=== PATIENT | male | born 1980 | race Caucasian/White ===

== ENCOUNTER 2017-10-09 01:43 | Emergency (ER) | payer OTHER ==
[2017-10-09 01:47] VITALS: BP 143/96
[2017-10-09] MEDS ORDERED: PREDNISONE 20 MG TABLET PO ONE (02:41)
--- NOTE | 2017-10-09 02:41 | ER Document Report ---
HPI - HPI Patient complains to provider of: skin rash Pain Level: 1 Context: Patient is a 36-year-old male comes emergency department for 2 different rashes. He has an itchy rash over his arms, chest, back, and also over the proximal legs, this is been present for 1 week. He also has a rash that he always gets around his boots which becomes itchy, turns into fluid vesicles, and then dries out and currently it is very dry. He denies any fevers or chills , he denies any throat or tongue swelling, denies facial swelling, denies difficulty breathing. Only past medical history is back surgery, takes no daily medications. Past Medical History - General Information source: Patient - Social History Smoking Status: Never Smoker Frequency of alcohol use: None Drug Abuse: None Lives with: Family Family History: Reviewed & Not Pertinent - Medical History Medical History: Negative Past Surgical History: Reports: Hx Orthopedic Surgery - Immunizations Hx Diphtheria, Pertussis, Tetanus Vaccination: Yes Vertical Provider Document - CONSTITUTIONAL General Appearance: WD/WN, No Apparent Distress - INFECTION CONTROL TRAVEL OUTSIDE OF THE [place] IN LAST 30 DAYS: No - HEENT HEENT: Atraumatic, Normal ENT Exam, Normocephalic - RESPIRATORY Respiratory: Breath Sounds Normal, No Respiratory Distress O2 Sat by Pulse Oximetry: 96 - CARDIOVASCULAR Cardiovascular: Regular Rate, Regular Rhythm - GI/ABDOMEN Gastrointestinal: Abdomen Soft, Abdomen Non-Tender - MUSCULOSKELETAL/EXTREMETIES Musculoskeletal/Extremeties: MAEW, FROM, Non-Tender - DERM Integumentary: Rash - Urticaria noted over the legs, arms, back, abdomen. Lower extremity with boot lines showing dried skin below the boot line suggestive of eczema. No indurations, fluctuance, significant arrhythmia, purulent component. Scattered areas of excoriation Course - Re-evaluation Re-evalutation: Contact dermatitis/eczema noted over the feet/legs distally. Urticaria noted otherwise. Normal ENT examination, normal airway. No evidence of anaphylaxis. Treating accordingly. Discussed monitoring, follow-up, return precautions. Patient states understanding and agreement. - Vital Signs Vital signs: Temp Pulse Resp BP Pulse Ox 98 F 107 H 16 143/96 H 96 10/09/17 01:45 10/09/17 01:45 10/09/17 01:45 10/09/17 01:45 10/09/17 01:45 Discharge - Discharge Clinical Impression: Skin rash Condition: Stable Disposition: HOME, SELF-CARE Additional Instructions: Your rash shows a mixture of eczema and hives. The exact cause of the hives is not clear. Take the prednisone as prescribed, take antihistamines prescribed for 1 week. Apply moisturizing cream to the dry parts of your leg, this appears to be eczema , but can also respond to topical steroid before it gets dry. Follow-up with primary care. Return to the emergency department for any concerning or worsening symptoms including swelling of the face/throat, difficulty breathing, or any other concerning symptoms. Prescriptions: Cetirizine HCl [Zyrtec 10 mg Tablet] 1 tab PO DAILY #30 tablet Famotidine [Pepcid 20 mg Tablet] 20 mg PO DAILY #12 tablet Prednisone [Deltasone 10 mg Tablet] 10 mg PO ASDIR PRN #21 tablet PRN Reason:
[2017-10-09] MEDS ORDERED: CETIRIZINE 10 MG TABLET PO ONE (02:42)
[2017-10-09] MEDS ORDERED: FAMOTIDINE 20 MG TABLET PO ONE (02:42)
== END 2017-10-09 02:56 | disposition home or self-care (01) ==
LOC: ER 01:43
DX: R21 Rash and other nonspecific skin eruption (principal)
CPT/HCPCS: 99282; J7512

== ENCOUNTER 2018-03-21 06:26 | Emergency (ER) | payer OTHER ==
[2018-03-21 06:39] VITALS: BP 150/90
[2018-03-21 07:58] LABS: ABSOLUTE BASOPHILS # (AUTO) 0.1 10^3/uL (0.0-0.2); ABSOLUTE EOSINOPHILS # (AUTO) 0.3 10^3/uL (0.0-0.6); ABSOLUTE LYMPHOCYTES (AUTO) 2.3 10^3/uL (0.5-4.7); ABSOLUTE MONOCYTES (AUTO) 0.8 10^3/uL (0.1-1.4); ABSOLUTE NEUT (AUTO) 4.8 10^3/uL (1.7-8.2); BASOPHILS % (AUTO) 0.8 % (0-2); EOSINOPHILS % (AUTO) 3.8 % (0-6); HEMATOCRIT 45.9 % (37.9-51.0); HEMOGLOBIN 15.6 g/dL (13.5-17.0); LYMPHOCYTES % (AUTO) 27.5 % (13-45); MEAN CORPUSCULAR HEMOGLOBIN 31.5 pg (27.0-33.4); MEAN CORPUSCULAR VOLUME 93 fl (80-97); MONOCYTES % (AUTO) 9.1 % (3-13); PLATELET COUNT 176 10^3/uL (150-450); RED BLOOD COUNT 4.94 10^6/uL (4.35-5.55); RED CELL DISTRIBUTION WIDTH 13.3 % (11.5-14.0); SEGMENTED NEUTROPHILS % (AUTO) 58.8 % (42-78); TOTAL CELLS COUNTED % (AUTO) 100 %; WHITE BLOOD COUNT 8.2 10^3/uL (4.0-10.5)
[2018-03-21 08:08] LABS: ALANINE AMINOTRANSFERASE 63 U/L (21-72); ALKALINE PHOSPHATASE 70 U/L (38-126); ANION GAP 11 (5-19); ASPARTATE AMINO TRANSFERASE 38 U/L (17-59); BILIRUBIN,DIRECT 0.3 mg/dL (0.0-0.4); BILIRUBIN,TOTAL 0.3 mg/dL (0.2-1.3); BLOOD UREA NITROGEN 10 mg/dL (7-20); CALCIUM 9.1 mg/dL (8.4-10.2); CARBON DIOXIDE 29 mmol/L (22-30); CHLORIDE 106 mmol/L (98-107); GLUCOSE 56 mg/dL (75-110); POTASSIUM 4.3 mmol/L (3.6-5.0); TOTAL PROTEIN 6.7 g/dL (6.3-8.2)
--- NOTE | 2018-03-21 08:32 | ER Document Report ---
ED General - General Chief Complaint: Bloody Stools Stated Complaint: BLOOD IN STOOL/SKIN PROBLEM Time Seen by Provider: 03/21/18 07:06 Mode of Arrival: Ambulatory Information source: Patient Notes: Patient presents emergency department with complaints of blood noted in the stool 3 bowel movements and possibly eczema since last year. Denies fever vomiting diarrhea. Reports stools are formed soft. Reports possible hemorrhoids. Reports he has had eczema in the same area since he was a child that came and went but since August the eczema has been worse. He has tried aquaphor without relief of sx. she also reports that Benadryl is not helping the itching which occurs mostly at night at approximately 3:00 in the morning. Reports he has a dermatology appointment on April 01. TRAVEL OUTSIDE OF THE [place] IN LAST 30 DAYS: No - HPI Onset: Other Onset/Duration: Persistent Quality of pain: No pain, Other - itchy Severity: None Pain Level: Denies Associated symptoms: None Exacerbated by: Denies Relieved by: Denies Similar symptoms previously: Yes Recently seen / treated by doctor: No - Related Data Allergies/Adverse Reactions: No Known Allergies Allergy (Unverified 03/21/18 07:05) Past Medical History - General Information source: Patient - Social History Smoking Status: Current Every Day Smoker Cigarette use (# per day): Yes Chew tobacco use (# tins/day): No Frequency of alcohol use: Occasional Drug Abuse: Marijuana Occupation: [employer] Lives with: Friend Family History: Reviewed & Not Pertinent. denies: Malignancy Patient has suicidal ideation: No Patient has homicidal ideation: No - Medical History Medical History: Negative Renal/ Medical History: Denies: Hx Peritoneal Dialysis Past Surgical History: Reports: Hx Orthopedic Surgery - Immunizations Hx Diphtheria, Pertussis, Tetanus Vaccination: Yes Review of Systems - Review of Systems Notes: Review HPI for review of systems., All other systems negative Physical Exam - Vital signs Vitals: Temp Pulse Resp BP Pulse Ox 98 F 86 18 150/90 H 98 03/21/18 06:27 03/21/18 06:27 03/21/18 06:27 03/21/18 06:27 03/21/18 06:27 - Notes Notes: PHYSICAL EXAMINATION: GENERAL: Well-appearing and in no acute distress HEAD: Atraumatic, normocephalic. EYES: Pupils equal round and reactive to light, extraocular movements intact, sclera anicteric, conjunctiva are normal. ENT: nares patent, oropharynx clear without exudates. Moist mucous membranes. NECK: Normal range of motion, supple without lymphadenopathy LUNGS: CTAB and equal. No wheezes rales or rhonchi. HEART: Regular rate and rhythm without murmurs ABDOMEN: Soft, no tenderness. No guarding, no rebound EXTREMITIES: Normal range of motion, no pitting edema. No cyanosis. NEUROLOGICAL: Cranial nerves grossly intact. Normal sensory/motor exams. PSYCH: Normal mood, normal affect. SKIN: Warm, Dry, normal turgor, eczema noted to tops of both feet, bilateral ankles, no warmth, good pedal pulse - Rectal Tenderness: Yes Stool: Heme positive Hemorrhoids: None - Skin Skin Temperature: Warm Skin Moisture: Dry Skin Color: Normal Location of irregularity: Extremities - bilateral ankles, dorsal tops of feet bilaterally with eczema Course - Re-evaluation Re-evalutation: 03/21/18 labs unremarkable, patient instructed on labs & treatment for eczema. Importance of follow-up with dermatology and GI for rectal bleeding. Denies family history of cancer. Instructed on stool softener, possible fissure. He verbalized understanding to all instructions, looks good, nontoxic. - Vital Signs Vital signs: Temp Pulse Resp BP Pulse Ox 98 F 86 18 150/90 H 98 03/21/18 06:27 03/21/18 06:27 03/21/18 06:27 03/21/18 06:27 03/21/18 06:27 - Laboratory Result Diagrams: 03/21/18 07:39 03/21/18 07:39 Laboratory results interpreted by me: 03/21/18 07:39 Sodium 146.0 H Glucose 56 L Discharge - Discharge Clinical Impression: Blood in stool Eczema Qualifiers: Eczema type: unspecified Qualified Code(s): L30.9 - Dermatitis, unspecified Condition: Stable Disposition: HOME, SELF-CARE Instructions: Atopic Dermatitis (Eczema) ([facility]), Gastroenterology, Rectal Bleeding, Unclear Cause ([facility]) Additional Instructions: *You have been evaluated for rectal bleeding, eczema *Monitor stools, take over the counter stool softener as indicated *Follow up with a sign erector within one week- I have listed several GI providers you may follow up with, call for an appointment *Follow up with your cooling pipe inspector as scheduled May 15th. Use cetaphil lotion as indicated *Take benadryl as indicated for itching, do not itch, apply cool compresses to calm itch *Return to ED for worsening condition, changes, needs Monitor your blood pressure. Your blood pressure was elevated today. This may be because you were anxious, in pain or because you need medication. It is important to follow up with your primary care provider for full evaluation. Forms: Elevated Blood Pressure, Smoking Cessation Education, Return to Work Referrals: MELISSA ROUSSEAU MD [ACTIVE STAFF] - Follow up as needed EDELMIRA EAGLE MD [ACTIVE STAFF] - Follow up as needed JESUS GEORGE MD [ACTIVE STAFF] -
== END 2018-03-21 08:57 | disposition home or self-care (01) ==
LOC: ER 06:26
DX: K92.1 Melena (principal); L30.9 Dermatitis, unspecified; F17.210 Nicotine dependence, cigarettes, uncomplicated
CPT/HCPCS: 36415; 80053; 82272; 85025; 99283

== ENCOUNTER 2018-04-02 08:02 | Emergency (ER) | payer OTHER ==
[2018-04-02 08:25] VITALS: BP 150/92
--- NOTE | 2018-04-02 10:04 | ER Document Report ---
ED GI Bleed / Rectal Pain - General Chief Complaint: Rectal Pain Stated Complaint: POSSIBLE HEMORRHOIDS Time Seen by Provider: 04/02/18 09:12 Notes: 37-year-old male. Complaining of pain in the rectum. Had a colonoscopy performed on Saturday. Has been fine. Had a large bowel movement this morning and developed pain after bowel movement. No blood in the stool. Patient had a colonoscopy because he had been passing bright red blood per rectum. Followed by Dr. Phillips. Denies any abdominal pain. No shortness of breath. No fever. Pain is getting a little bit better since he has arrived here. Has been using some hemorrhoidal cream. Stool softeners. States the bowel movement was soft. TRAVEL OUTSIDE OF THE [place] IN LAST 30 DAYS: No - HPI Onset: Just prior to arrival - Related Data Allergies/Adverse Reactions: No Known Allergies Allergy (Verified 04/02/18 08:05) Past Medical History - General Information source: Patient - Social History Smoking Status: Unknown if Ever Smoked Cigarette use (# per day): No Frequency of alcohol use: None Drug Abuse: None Lives with: Family Family History: Reviewed & Not Pertinent. denies: Malignancy Renal/ Medical History: Denies: Hx Peritoneal Dialysis Past Surgical History: Reports: Hx Orthopedic Surgery - back 2007 - Immunizations Hx Diphtheria, Pertussis, Tetanus Vaccination: Yes Review of Systems - Review of Systems Constitutional: No symptoms reported EENT: No symptoms reported Cardiovascular: No symptoms reported Respiratory: No symptoms reported Gastrointestinal: See HPI, Other - Rectal pain, rectal bleeding Genitourinary: No symptoms reported Male Genitourinary: No symptoms reported Musculoskeletal: No symptoms reported Skin: No symptoms reported Hematologic/Lymphatic: No symptoms reported Neurological/Psychological: No symptoms reported Physical Exam - Vital signs Vitals: Temp Pulse Resp BP Pulse Ox 98.0 F 86 20 150/92 H 99 04/02/18 08:23 04/02/18 08:23 04/02/18 08:23 04/02/18 08:23 04/02/18 08:23 Interpretation: Normal - General General appearance: Appears well, Alert - HEENT Head: Normocephalic, Atraumatic Eyes: Normal Pupils: PERRL - Respiratory Respiratory status: No respiratory distress Chest status: Nontender Breath sounds: Normal Chest palpation: Normal - Cardiovascular Rhythm: Regular Heart sounds: Normal auscultation Murmur: No - Abdominal Inspection: Normal Distension: No distension Bowel sounds: Normal Tenderness: Nontender. No: Guarding, Rebound Organomegaly: No organomegaly - Rectal Tenderness: Yes Stool: Heme negative Hemorrhoids: None Notes: Tenderness at the anal sphincter area. No obvious masses palpated. No obvious bleeding. - Back Back: Normal, Nontender - Extremities General upper extremity: Normal inspection, Nontender, Normal color, Normal ROM , Normal temperature General lower extremity: Normal inspection, Nontender, Normal color, Normal ROM , Normal temperature, Normal weight bearing. No: Kori's sign - Neurological Neuro grossly intact: Yes Cognition: Normal Orientation: AAOx4 Colbert Coma Scale Eye Opening: Spontaneous Ana Coma Scale Verbal: Oriented Ana Coma Scale Motor: Obeys Commands Colbert Coma Scale Total: 15 Speech: Normal Motor strength normal: LUE, RUE, LLE, RLE Sensory: Normal - Psychological Associated symptoms: Normal affect, Normal mood - Skin Skin Temperature: Warm Skin Moisture: Dry Skin Color: Normal Course - Re-evaluation Re-evalutation: 04/02/18 10:02 Evidence of bleeding at this time. Recent colonoscopy. Advised him that this more likely represents a rectal spasm. 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 Advised him to call his gang saw operator today. At this time patient has some Flexeril at home. Advised him to take some Flexeril. We will give him work note. Ibuprofen or Tylenol for pain and return for any worsening symptoms or concerns. There is no concern in my mind the patient has a perforated viscus. His abdomen is soft and non-distended. No abdominal pain. Pain is located only at the perirectal area. No evidence of external hemorrhoids. - Vital Signs Vital signs: Temp Pulse Resp BP Pulse Ox 98.0 F 86 20 150/92 H 99 04/02/18 08:23 04/02/18 08:23 04/02/18 08:23 04/02/18 08:23 04/02/18 08:23 Discharge - Discharge Clinical Impression: Rectal sphincter spasm Condition: Good Disposition: HOME, SELF-CARE Instructions: Rectal Bleeding, Unclear Cause ([facility]) Additional Instructions: You have been diagnosed with a rectal spasm. Take your Flexeril as advised. Rest today. Follow-up with your gang saw operator if symptoms are getting worse or for other concerns. Forms: Return to Work
== END 2018-04-02 10:26 | disposition home or self-care (01) ==
LOC: ER 08:02
DX: K59.4 Anal spasm (principal); K62.89 Other specified diseases of anus and rectum; Z98.890 Other specified postprocedural states
CPT/HCPCS: 99283

== ENCOUNTER 2018-06-14 15:08 | Emergency (ER) | payer OTHER ==
--- NOTE | 2018-06-14 16:12 | ER Document Report ---
ED Medical Screen (RME) - General Chief Complaint: Rectal Pain Stated Complaint: RECTAL PAIN Time Seen by Provider: 06/14/18 16:11 Mode of Arrival: Ambulatory Information source: Patient Notes: 37-year-old man with a history of hemorrhoids who presents with severe pain in the rectum since this morning. Patient states that there is a lot of swelling and he was unable to insert a suppository. There has been no fever, chills, nausea vomiting or abdominal pain. TRAVEL OUTSIDE OF THE [place] IN LAST 30 DAYS: No - Related Data Allergies/Adverse Reactions: No Known Allergies Allergy (Verified 06/14/18 15:10) Past Medical History - Social History Chew tobacco use (# tins/day): No Frequency of alcohol use: Social Drug Abuse: None Renal/ Medical History: Denies: Hx Peritoneal Dialysis Past Surgical History: Reports: Hx Orthopedic Surgery - back 2007 - Immunizations Hx Diphtheria, Pertussis, Tetanus Vaccination: Yes Physical Exam - Vital signs Vitals: Temp Pulse Resp BP Pulse Ox 98.4 F 80 18 145/88 H 96 06/14/18 15:15 06/14/18 15:15 06/14/18 15:15 06/14/18 15:15 06/14/18 15:15 Course - Vital Signs Vital signs: Temp Pulse Resp BP Pulse Ox 98.4 F 80 18 145/88 H 96 06/14/18 15:15 06/14/18 15:15 06/14/18 15:15 06/14/18 15:15 06/14/18 15:15
[2018-06-14] MEDS ORDERED: FENTANYL CITRATE INJ/PF 100 MCG/2 ML AMPUL IV ONE (18:22)
[2018-06-14] MEDS ORDERED: NORMAL SALINE 1000 ML 1,000 ML IV ONE (18:22)
[2018-06-14] MEDS ORDERED: LIDOCAINE 2% URO-JET 5 ML KIT MM ONE (18:23)
[2018-06-14] MEDS ORDERED: METOCLOPRAMIDE HCL INJ/PF 10 MG/2 ML SDV IV ONE (18:23)
--- NOTE | 2018-06-14 18:23 | ER Document Report ---
ED GI Bleed / Rectal Pain - General Mode of Arrival: Ambulatory Information source: Patient TRAVEL OUTSIDE OF THE [place] IN LAST 30 DAYS: No <JACK VINES - Last Filed: 06/14/18 19:36> <JUNIE BONILLA - Last Filed: 06/14/18 20:52> - General Chief Complaint: Rectal Pain Stated Complaint: RECTAL PAIN Time Seen by Provider: 06/14/18 16:11 Notes: 37-year-old male who presents to the emergency department today with complaints of possible hemorrhoids. Patient states when having a bowel movement last night he began having increasing pain and blood. Patient states that he has been given suppositories by the [facility] but he states he has been unable to use them because of pain. Patient states it "hurts so much I couldn't get it in". Patient states he had a colonoscopy at the end of February and was told he had internal hemorrhoids but was not told about anything else. (JACK VINES) - Related Data Allergies/Adverse Reactions: No Known Allergies Allergy (Verified 06/14/18 20:13) Past Medical History - General Information source: Patient - Social History Smoking Status: Current Every Day Smoker Cigarette use (# per day): Yes - 1.5 packs per day Chew tobacco use (# tins/day): No Frequency of alcohol use: Social Drug Abuse: None Lives with: Friend Family History: Reviewed & Not Pertinent Patient has suicidal ideation: No Patient has homicidal ideation: No Past Surgical History: Reports: Hx Orthopedic Surgery - back 2008, L5-S1 discectomy with artificial disc replacement - Immunizations Hx Diphtheria, Pertussis, Tetanus Vaccination: Yes <JACK VINES - Last Filed: 06/14/18 19:36> Review of Systems - Review of Systems Constitutional: No symptoms reported EENT: No symptoms reported Cardiovascular: No symptoms reported Respiratory: No symptoms reported Gastrointestinal: See HPI, Rectal bleeding, Other - rectal pain Genitourinary: No symptoms reported Male Genitourinary: No symptoms reported Musculoskeletal: No symptoms reported Skin: No symptoms reported Hematologic/Lymphatic: No symptoms reported Neurological/Psychological: No symptoms reported -: Yes All other systems reviewed and negative <JACK VINES - Last Filed: 06/14/18 19:36> Physical Exam <JACK VINES - Last Filed: 06/14/18 19:36> <JUNIE BONILLA - Last Filed: 06/14/18 20:52> - Vital signs Vitals: Temp Pulse Resp BP Pulse Ox 98.4 F 80 18 145/88 H 96 06/14/18 15:15 06/14/18 15:15 06/14/18 15:15 06/14/18 15:15 06/14/18 15:15 - Notes Notes: Physical Exam: General: Alert, appears well. HEENT: Normocephalic. Atraumatic. PERRL. Extraocular movements intact. Oropharynx clear. Neck: Supple. Non-tender. Respiratory: No respiratory distress. Clear and equal breath sounds bilaterally. Cardiovascular: Regular rate and rhythm. Abdominal: Normal Inspection. Non-tender. No distension. Normal Bowel Sounds. Back: Non-tender. No deformity or step off. Extremities: Moves all four extremities. Upper extremities: Normal inspection. Normal ROM. Lower extremities: Normal inspection. No edema. Normal ROM. Neurological: Normal cognition. AAOx4. Normal speech. Psychological: Normal affect. Normal Mood. Skin: Warm. Dry. Normal color. (JACK VINES) Course - Laboratory Result Diagrams: 06/14/18 19:47 06/14/18 19:47 <JUNIE BONILLA - Last Filed: 06/14/18 20:52> - Vital Signs Vital signs: Temp Pulse Resp BP Pulse Ox 98.4 F 58 L 18 138/77 H 98 06/14/18 15:15 06/14/18 19:40 06/14/18 19:40 06/14/18 19:40 06/14/18 19:40 Discharge <JACK VINES - Last Filed: 06/14/18 19:36> <JUNIE BONILLA - Last Filed: 06/14/18 20:52> - Discharge Clinical Impression: Anal fissure Condition: Stable Disposition: HOME, SELF-CARE Additional Instructions: Anal Fissure You have a split in the tissues of the anus, called an anal fissure. This may be due to constipation, or chronic anal irritation. The fissure causes pain during bowel movements. It may bleed when you pass stool. Treat the fissure with warm sitz baths three or four times a day. Clean the anal area carefully -- special cleansing pads (Tucks) may be helpful. Sometimes prescription suppositories are helpful in reducing pain and inflammation. A stool softener (such as Metamucil) will make bowel movements less traumatic. Eat a diet high in fiber (fruits, whole grains), and drink plenty of water. See your doctor if there is profuse bleeding, increasing pain, an enlarging mass, or fever -- or if the symptoms do not resolve after treatment. Your exam suggests you have an internal anal fissure. These can be quite painful and when you pass a bowel movement feel like someone is cutting you with a knife. You will be treated with a lidocaine gel to apply up into the anorectal area with your fingertip 3 times daily. You will also be prescribed a nitroglycerin paste to apply to the same area twice daily. You should take a fiber pill twice daily and a stool softener twice daily. Drink lots of fluids so that your bowel movements will be soft. Call [place] [facility] Saturday to schedule an appointment this week. Prescriptions: Lidocaine 5% Ointment 1 applic MT TID #1 tube Nitroglycerin Ointment 0.4% 1 applic MT BID #1 tube Referrals: LEESA CHEUNG NP [Primary Care Provider] - Follow up as needed [facility] [Provider Group] - Follow up in 3-5 days (Call Saturday to schedule an appointment.) Scribe Attestation: 06/14/18 20:52 I personally performed the services described in the documentation, reviewed and edited the documentation which was dictated to the scribe in my presence, and it accurately records my words and actions. (JUNIE BONILLA) Scribe Documentation - Scribe Written by Veronika:: Veronika Cabral, 06/14/[id number] acting as scribe for :: Maryan <JACK VINES - Last Filed: 06/14/18 19:36>
[2018-06-14 20:19] LABS: ABSOLUTE BASOPHILS # (AUTO) 0.1 10^3/uL (0.0-0.2); ABSOLUTE EOSINOPHILS # (AUTO) 0.1 10^3/uL (0.0-0.6); ABSOLUTE LYMPHOCYTES (AUTO) 2.6 10^3/uL (0.5-4.7); ABSOLUTE MONOCYTES (AUTO) 0.6 10^3/uL (0.1-1.4); ABSOLUTE NEUT (AUTO) 6.6 10^3/uL (1.7-8.2); BASOPHILS % (AUTO) 0.5 % (0-2); EOSINOPHILS % (AUTO) 1.4 % (0-6); HEMATOCRIT 45.7 % (37.9-51.0); HEMOGLOBIN 15.9 g/dL (13.5-17.0); LYMPHOCYTES % (AUTO) 26.4 % (13-45); MEAN CORPUSCULAR HEMOGLOBIN 32.5 pg (27.0-33.4); MEAN CORPUSCULAR HGB CONC 34.8 g/dL (32.0-36.0); MEAN CORPUSCULAR VOLUME 93 fl (80-97); MONOCYTES % (AUTO) 5.9 % (3-13); PLATELET COUNT 197 10^3/uL (150-450); RED BLOOD COUNT 4.91 10^6/uL (4.35-5.55); SEGMENTED NEUTROPHILS % (AUTO) 65.8 % (42-78); TOTAL CELLS COUNTED % (AUTO) 100 %
[2018-06-14 20:25] LABS: ALANINE AMINOTRANSFERASE 44 U/L (21-72); ALKALINE PHOSPHATASE 66 U/L (38-126); ANION GAP 9 (5-19); ASPARTATE AMINO TRANSFERASE 47 U/L (17-59); BILIRUBIN,DIRECT 0.2 mg/dL (0.0-0.4); BILIRUBIN,TOTAL 0.5 mg/dL (0.2-1.3); BLOOD UREA NITROGEN 10 mg/dL (7-20); CALCIUM 9.2 mg/dL (8.4-10.2); CARBON DIOXIDE 27 mmol/L (22-30); CHLORIDE 106 mmol/L (98-107); GLUCOSE 89 mg/dL (75-110); POTASSIUM 4.3 mmol/L (3.6-5.0); SODIUM 141.8 mmol/L (137-145); TOTAL PROTEIN 7.2 g/dL (6.3-8.2)
[2018-06-14 21:00] VITALS: BP 145/77
[2018-06-14] MEDS ORDERED: NITROGLYCERIN 2% OINTMENT 1 GM PACKET TP ONE (21:01)
== END 2018-06-14 21:10 | disposition home or self-care (01) ==
LOC: ER 15:08
DX: K60.2 Anal fissure, unspecified (principal); K62.5 Hemorrhage of anus and rectum; F17.210 Nicotine dependence, cigarettes, uncomplicated
CPT/HCPCS: 99283; 96374; 96375; 36415; 85025; 80053; J3010; J2765; J7030; J3490

== ENCOUNTER 2018-08-15 11:40 | Day surgery (SDC) | payer OTHER ==
[2018-07-24 11:49] LABS: HEMATOCRIT 47.8 % (37.9-51.0); HEMOGLOBIN 16.6 g/dL (13.5-17.0); MEAN CORPUSCULAR HEMOGLOBIN 32.3 pg (27.0-33.4); MEAN CORPUSCULAR HGB CONC 34.9 g/dL (32.0-36.0); MEAN CORPUSCULAR VOLUME 93 fl (80-97); PLATELET COUNT 200 10^3/uL (150-450); RED BLOOD COUNT 5.15 10^6/uL (4.35-5.55); RED CELL DISTRIBUTION WIDTH 13.1 % (11.5-14.0); WHITE BLOOD COUNT 9.8 10^3/uL (4.0-10.5)
[2018-07-24 12:13] LABS: ANION GAP 8 (5-19); BLOOD UREA NITROGEN 17 mg/dL (7-20); CALCIUM 9.2 mg/dL (8.4-10.2); CARBON DIOXIDE 28 mmol/L (22-30); CHLORIDE 104 mmol/L (98-107); GLUCOSE 78 mg/dL (75-110); POTASSIUM 5.5 mmol/L (3.6-5.0); SODIUM 139.6 mmol/L (137-145)
[~2018-08-15 11:40] MED LIST: LACTATED RINGERS 1000 ML IV PRN; LIDOCAINE 0.5% INJ-PF (5 MG/ML) 50 ML SDV SUBCUT PRN; METRONIDAZOLE 500 MG/NS RTU 500 MG/100 ML RTUPB IV PRN; RINGERS SOLUTION,LACTATED 1,000 ML IV PRN; SUCCINYLCHOLINE CHLORIDE INJ 200 MG/10 ML VIAL ONE
[2018-08-15] MEDS ORDERED: METRONIDAZOLE 500 MG/NS RTU 500 MG/100 ML RTUPB IV ONE (12:38)
[2018-08-15] MEDS ORDERED: ALBUTEROL SULFATE 0.083% NEB 2.5 MG/3 ML AMPUL NEB ONE ×2 (13:06→13:09)
[2018-08-15] MEDS ORDERED: BUPIVACAINE HCL 0.5 % INJ/PF 30 ML SDV ONE (16:37)
[2018-08-15] MEDS ORDERED: ONDANSETRON HCL INJ/PF 4 MG/2 ML SDV ONE (17:33)
[2018-08-15] MEDS ORDERED: MIDAZOLAM 2 MG/2 ML INJ ONE (17:33)
[2018-08-15] MEDS ORDERED: DEXAMETHASONE SOD PHOSPHATE INJ 4 MG/1 ML VIAL ONE (17:33)
[2018-08-15] MEDS ORDERED: FENTANYL CITRATE INJ/PF 100 MCG/2 ML AMPUL ONE (17:33)
[2018-08-15] MEDS ORDERED: PROPOFOL INJ 200 MG/20 ML VIAL IV ONE (17:34)
[2018-08-15] MEDS ORDERED: MEPERIDINE HCL/PF INJ 25 MG/1 ML DISP.SYRIN IV PRN (17:58)
[2018-08-15] MEDS ORDERED: PROMETHAZINE HCL INJ 25 MG/1 ML VIAL IV PRN ×2 (17:58)
[2018-08-15] MEDS ORDERED: FENTANYL CITRATE INJ/PF 100 MCG/2 ML AMPUL IV PRN ×3 (17:58)
[2018-08-15] MEDS ORDERED: DIPHENHYDRAMINE HCL 50 MG/ML VIAL IV PRN (17:58)
[2018-08-15] MEDS ORDERED: ONDANSETRON HCL INJ/PF 4 MG/2 ML SDV IV PRN (17:58)
[2018-08-15] MEDS ORDERED: MORPHINE SULFATE 10 MG/ML INJ IV PRN (17:58)
--- NOTE | 2018-08-15 18:27 | Discharge Summary ---
Discharge Summary (SDC) - Discharge Final Diagnosis: Chronic anal fissure Date of Surgery: 08/15/18 Discharge Date: 08/15/18 Condition: Stable Treatment or Instructions: Discharge home. Diet as tolerated. Activity as tolerated. Follow-up with me in 2 weeks. 5% lidocaine ointment to rectum 3 times daily. Sitz baths in warm soapy water twice daily and after bowel movements. Referrals: LEESA CHEUNG NP [Primary Care Provider] - Discharge Diet: As Tolerated Respiratory Treatments at Home: Deep Breathing/Coughing, Incentive Spirometer Discharge Activity: Activity As Tolerated, Balance Activity w/Rest Home Care Assistance: None Needed Report the Following to Your Physician Immediately: Shortness of Breath, Nausea , Vomiting, Increase in Pain, Unusual Bleeding, Redness, Swelling, Warmth, Increased Soreness
--- NOTE | 2018-08-15 18:29 | Operative Report ---
Nonrecallable Operative Report DATE OF SURGERY: 08/15/18 PREOPERATIVE DIAGNOSIS: Chronic anal fissure POSTOPERATIVE DIAGNOSIS: Same as above OPERATION: Lateral internal sphincterotomy SURGEON: JAIME VÁSQUEZ ANESTHESIA: GA TISSUE REMOVED OR ALTERED: None COMPLICATIONS: None apparent ESTIMATED BLOOD LOSS: Minimal PROCEDURE: Drains/implants: None. Procedure in detail: After informed consent was obtained, the patient was brought to the operating room and laid in the prone jackknife position. The area of the rectum was prepped and draped in normal sterile fashion. An 11 blade scalpel was used to create an incision at the border of the internal and external sphincter complex on the right. The 11 blade scalpel was then used to divide the internal sphincter, in the right lateral position. A hemostat was used to spread the fibers of the internal sphincter complex to ensure that they were totally released. Once this was completed, a dressing was fashioned and the procedure was concluded. All sponge, instrument, and needle counts were correct x2. Condition: Stable.
[2018-08-15 20:43] VITALS: BP 137/87
== END 2018-08-15 20:55 | disposition home or self-care (01) ==
LOC: OROUT 11:40 → 2N 19:49 → OROUT 20:55
PROVIDERS: ATTEND Surgery
DX: K60.1 Chronic anal fissure (principal); G47.30 Sleep apnea, unspecified; F17.210 Nicotine dependence, cigarettes, uncomplicated; F12.90 Cannabis use, unspecified, uncomplicated; Z86.010 Personal history of colon polyps; Z79.899 Other long term (current) drug therapy
CPT/HCPCS: 36415 ×2; 84132; 85027; 80048; 46080; J2250; J3490; J1100; J3010; J0330; J2405; J2704; 902

== ENCOUNTER 2018-10-21 16:01 | Emergency (ER) | payer OTHER ==
[2018-10-21] MEDS ORDERED: NAPROXEN 250 MG TABLET PO ONE (16:37)
[2018-10-21] MEDS ORDERED: ACETAMINOPHEN 325 MG TABLET PO ONE (16:37)
--- NOTE | 2018-10-21 16:46 | ER Document Report ---
ED Extremity Problem, Upper - General Chief Complaint: Shoulder Pain Stated Complaint: SHOULDER PAIN Time Seen by Provider: 10/21/18 16:23 Mode of Arrival: Ambulatory Information source: Patient Notes: 38-year-old male presented to ED for complaint of right shoulder pain for the last 3-4 days. He states he does not know of any injury he said that 3 or 4 days ago he woke up with a sore shoulder and is progressively gotten worse each day. He states today it is so sore it is hard to lift his shoulder. He states last week he used his shoulder more than normal. Patient states he has been using Excedrin to every 4-6 hours for his pain. TRAVEL OUTSIDE OF THE [place] IN LAST 30 DAYS: No - HPI Patient complains to provider of: Pain, Right, Shoulder Onset: Other - 4 days Recent injury: No Quality of pain: Sharp, Throbbing Severity of pain: Moderate Pain Level: 4 Associated symptoms: None Exacerbated by: Movement, Exertion Relieved by: Rest Similar symptoms previously: No Recently seen / treated by doctor: No - Related Data Allergies/Adverse Reactions: No Known Allergies Allergy (Verified 10/21/18 16:02) Past Medical History - General Information source: Patient - Social History Smoking Status: Current Every Day Smoker Cigarette use (# per day): Yes - 1-1/2 packs a day Chew tobacco use (# tins/day): No Smoking Education Provided: Yes - 4 minutes Frequency of alcohol use: Social Drug Abuse: Marijuana 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 Lives with: Friend - Roommates Family History: Reviewed & Not Pertinent Patient has suicidal ideation: No Patient has homicidal ideation: No - Past Medical History Cardiac Medical History: Reports: None Pulmonary Medical History: Reports: Hx Bronchitis EENT Medical History: Reports: None Neurological Medical History: Reports: None Endocrine Medical History: Reports: None Renal/ Medical History: Reports: None Malignancy Medical History: Reports None GI Medical History: Reports: None Musculoskeletal Medical History: Reports Hx Musculoskeletal Trauma Skin Medical History: Reports None Psychiatric Medical History: Reports: None Traumatic Medical History: Reports: None Infectious Medical History: Reports: None Past Surgical History: Reports: Hx Orthopedic Surgery - back 2008, L5-S1 discectomy with artificial disc replacement - Immunizations Hx Diphtheria, Pertussis, Tetanus Vaccination: - Unsure Review of Systems - Review of Systems Constitutional: No symptoms reported EENT: No symptoms reported Cardiovascular: No symptoms reported Respiratory: No symptoms reported Gastrointestinal: No symptoms reported Genitourinary: No symptoms reported Male Genitourinary: No symptoms reported Musculoskeletal: Joint pain - Right shoulder, Joint swelling Skin: No symptoms reported Hematologic/Lymphatic: No symptoms reported Neurological/Psychological: No symptoms reported -: Yes All other systems reviewed and negative Physical Exam - Vital signs Vitals: Temp Pulse Resp BP Pulse Ox 98.1 F 92 18 132/88 H 99 10/21/18 16:13 10/21/18 16:13 10/21/18 16:13 10/21/18 16:13 10/21/18 16:13 Interpretation: Normal - General General appearance: Appears well, Alert - HEENT Head: Normocephalic, Atraumatic Eyes: Normal Pupils: PERRL - Respiratory Respiratory status: No respiratory distress Chest status: Nontender Breath sounds: Normal Chest palpation: Normal - Cardiovascular Rhythm: Regular Heart sounds: Normal auscultation Murmur: No - Abdominal Inspection: Normal Distension: No distension Bowel sounds: Normal Tenderness: Nontender Organomegaly: No organomegaly - Back Back: Normal, Nontender - Extremities General upper extremity: Normal temperature General lower extremity: Normal inspection, Nontender, Normal color, Normal ROM , Normal temperature, Normal weight bearing. No: Kori's sign Shoulder: Tender, Other - Pain with range of motion. No: Abrasion, Deformity, Dislocation, Ecchymosis, Instability, Laceration - Neurological Neuro grossly intact: Yes Cognition: Normal Orientation: AAOx4 [place] Coma Scale Eye Opening: Spontaneous Ana Coma Scale Verbal: Oriented [place] Coma Scale Motor: Obeys Commands [place] Coma Scale Total: 15 Speech: Normal Motor strength normal: LUE, RUE, LLE, RLE Sensory: Normal - Psychological Associated symptoms: Normal affect, Normal mood - Skin Skin Temperature: Warm Skin Moisture: Dry Skin Color: Normal Course - Re-evaluation Re-evalutation: 10/21/18 21:12 Discussed results of shoulder x-ray with Dr. Mccrary who recommended calling oncology. Spoke with Dr. Mccall oncologist who requested that I get a chest x- ray CBC and chemistry and send the results with the patient. Patient is to call [facility] in the morning and get referral to Dr. Kelley as soon as possible. Shoulder x-ray shows a lytic lesion to the humeral metaphysis which is possible cancerous. Patient was discharged home with prescription for ibuprofen and a copy of the x-rays to his shoulder and chest as well as CBC and chemistry. - Vital Signs Vital signs: Temp Pulse Resp BP Pulse Ox 97.2 F 59 L 16 140/83 H 99 10/21/18 19:33 18 19:33 10/21/18 19:33 10/21/18 19:33 10/21/18 19:33 - Laboratory Result Diagrams: 10/21/18 18:18 10/21/18 18:18 Laboratory results interpreted by me: 10/21/18 18:18 Carbon Dioxide 32 H - Diagnostic Test Radiology reviewed: Image reviewed, Reports reviewed Discharge - Discharge Clinical Impression: small lytic lesion hemeral metaphsis Condition: Stable Disposition: HOME, SELF-CARE Additional Instructions: You came to the ED for right shoulder pain. Your x-ray shows a small lytic lesion to the humeral metaphysis. I have spoken with the oncologist who recommended a chest x-ray CBC and chemistry. These have been completed and you have been given a report of these test to take with you to the oncologist office. Please [facility] with [facility] tomorrow and get any appropriate documents V to follow-up with the oncologist as soon as possible. Ibuprofen Ibuprofen is an excellent, safe drug for pain control. In addition, it has potent antiinflammatory effects which are beneficial, especially in the treatment of injuries, arthritis, or tendonitis. It's best to take ibuprofen with food. Persons with ulcer disease or allergy to aspirin should notify their physician of this before taking ibuprofen. Take the medication exactly as prescribed. Don't take additional doses unless instructed to do so by your doctor. If you develop wheezing, shortness of breath, hives, faintness, stomach pain, vomiting, or dark black stools, return for re-evaluation at once. Follow-Up Care Although no definite follow-up visit has been scheduled for you, you should return if there is unexpected worsening or a significant change in your symptoms. Prescriptions: Naproxen 500 mg PO BID #14 tablet Forms: Elevated Blood Pressure, Smoking Cessation Education, Return to Work Referrals: KING MCCALL MD [ACTIVE STAFF] - Follow up tomorrow LEESA CHEUNG NP [Primary Care Provider] - Follow up tomorrow
--- NOTE | 2018-10-21 17:03 | RADIOLOGY REPORT (SQ) ---
EXAM DESCRIPTION: SHOULDER RIGHT 2 OR MORE VIEWS COMPLETED DATE/TIME: 10/21/2018 4:52 pm REASON FOR STUDY: 4 days worsening pain COMPARISON: None. NUMBER OF VIEWS: Three views. TECHNIQUE: Internal rotation, external rotation, and Y view images acquired of the right shoulder. LIMITATIONS: None. FINDINGS: MINERALIZATION: Normal. BONES: There is a small lytic lesion in the humeral metaphysis. No fracture or other acute abnormali ty. JOINTS: No dislocation. VISUALIZED LUNGS AND RIBS: No pneumothorax. No rib fracture. SOFT TISSUES: No radiopaque foreign body. OTHER: No other significant finding. IMPRESSION: Small lytic lesion in the humeral metaphysis. Is there history of multiple myeloma? TECHNICAL DOCUMENTATION: JOB ID: [id number] [employer]- All Rights Reserved Reading location - IP/workstation name: [email or web address]
[2018-10-21 18:32] LABS: ABSOLUTE BASOPHILS # (AUTO) 0.1 10^3/uL (0.0-0.2); ABSOLUTE EOSINOPHILS # (AUTO) 0.3 10^3/uL (0.0-0.6); ABSOLUTE LYMPHOCYTES (AUTO) 3.1 10^3/uL (0.5-4.7); ABSOLUTE MONOCYTES (AUTO) 0.6 10^3/uL (0.1-1.4); ABSOLUTE NEUT (AUTO) 4.2 10^3/uL (1.7-8.2); BASOPHILS % (AUTO) 0.7 % (0-2); EOSINOPHILS % (AUTO) 3.9 % (0-6); HEMATOCRIT 42.5 % (37.9-51.0); LYMPHOCYTES % (AUTO) 36.9 % (13-45); MEAN CORPUSCULAR HEMOGLOBIN 32.6 pg (27.0-33.4); MEAN CORPUSCULAR HGB CONC 35.2 g/dL (32.0-36.0); MEAN CORPUSCULAR VOLUME 93 fl (80-97); MONOCYTES % (AUTO) 7.4 % (3-13); PLATELET COUNT 195 10^3/uL (150-450); RED BLOOD COUNT 4.59 10^6/uL (4.35-5.55); RED CELL DISTRIBUTION WIDTH 12.6 % (11.5-14.0); SEGMENTED NEUTROPHILS % (AUTO) 51.1 % (42-78); TOTAL CELLS COUNTED % (AUTO) 100 %; WHITE BLOOD COUNT 8.3 10^3/uL (4.0-10.5)
[2018-10-21 18:41] LABS: ALANINE AMINOTRANSFERASE 50 U/L (21-72); ALBUMIN 4.3 g/dL (3.5-5.0); ALKALINE PHOSPHATASE 80 U/L (38-126); ANION GAP 10 (5-19); ASPARTATE AMINO TRANSFERASE 31 U/L (17-59); BILIRUBIN,DIRECT 0.3 mg/dL (0.0-0.4); BILIRUBIN,TOTAL 0.4 mg/dL (0.2-1.3); BLOOD UREA NITROGEN 8 mg/dL (7-20); CALCIUM 9.3 mg/dL (8.4-10.2); CARBON DIOXIDE 32 mmol/L (22-30); CHLORIDE 101 mmol/L (98-107); GLUCOSE 99 mg/dL (75-110); POTASSIUM 4.9 mmol/L (3.6-5.0); SODIUM 142.7 mmol/L (137-145); TOTAL PROTEIN 7.4 g/dL (6.3-8.2)
--- NOTE | 2018-10-21 18:56 | RADIOLOGY REPORT (SQ) ---
EXAM DESCRIPTION: CHEST 2 VIEWS COMPLETED DATE/TIME: 10/21/2018 6:37 pm REASON FOR STUDY: litic lesion to humeral metaphis smoker COMPARISON: None. EXAM PARAMETERS: NUMBER OF VIEWS: two views TECHNIQUE: Digital Frontal and Lateral radiographic views of the chest acquired. RADIATION DOSE: NA LIMITATIONS: none FINDINGS: LUNGS AND PLEURA: No opacities, masses or pneumothorax. No pleural effusion. MEDIASTINUM AND HILAR STRUCTURES: No masses or contour abnormalities. HEART AND VASCULAR STRUCTURES: Heart normal size. No evidence for failure. BONES: No acute findings. HARDWARE: None in the chest. OTHER: No other significant finding. IMPRESSION: NO ACUTE RADIOGRAPHIC FINDING IN THE CHEST. TECHNICAL DOCUMENTATION: JOB ID: [id number] [employer]- All Rights Reserved Reading location - IP/workstation name: [email or web address]
[2018-10-21 19:35] VITALS: BP 140/83
== END 2018-10-21 19:35 | disposition home or self-care (01) ==
LOC: ER 16:01
DX: M89.9 Disorder of bone, unspecified (principal); M25.511 Pain in right shoulder; F17.210 Nicotine dependence, cigarettes, uncomplicated; Z71.6 Tobacco abuse counseling; M25.40 Effusion, unspecified joint
CPT/HCPCS: 36415; 71046; 80053; 85025; 99283; 99406

== ENCOUNTER 2018-10-24 10:34 | Emergency (ER) | payer OTHER ==
[2018-10-24 10:47] VITALS: BP 143/85
[2018-10-24] MEDS ORDERED: PREDNISONE 20 MG TABLET PO ONE (11:08)
[2018-10-24] MEDS ORDERED: LIDOCAINE 5% (700 MG) TRANSDERMAL ADH..PATCH TP ONE (11:08)
--- NOTE | 2018-10-24 11:11 | ER Document Report ---
HPI - HPI Patient complains to provider of: Right shoulder pain Time Seen by Provider: 10/24/18 10:52 Onset: Last week Onset/Duration: Persistent Quality of pain: Achy Pain Level: 4 Context: Patient presents complaining of right shoulder pain that radiates into the right upper arm for the past week. Patient complains of occasional pain and numbness to the right upper extremity. Patient denies any injury. Patient denies any fever. Patient denies any IV drug use. Patient is right-hand dominant. Associated Symptoms: Other - Right upper back, right shoulder right upper arm pain. denies: Fever, Headache Exacerbated by: Movement Relieved by: Denies Similar symptoms previously: Yes Recently seen / treated by doctor: Yes - ROS ROS below otherwise negative: Yes Systems Reviewed and Negative: Yes All other systems reviewed and negative - CONSTITUTIONAL Constitutional: DENIES: Fever, Chills - NEURO Neurology: DENIES: Headache, Weakness - RESPIRATORY Respiratory: DENIES: Coughing - GASTROINTESTINAL Gastrointestinal: DENIES: Nausea - MUSCULOSKELETAL Musculoskeletal: REPORTS: Extremity pain - right arm, Back Pain. 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 Lives with: Family Family History: Reviewed & Not Pertinent Patient has suicidal ideation: No Patient has homicidal ideation: No Pulmonary Medical History: Reports: Hx Bronchitis Renal/ Medical History: Denies: Hx Peritoneal Dialysis Musculoskeletal Medical History: Reports Hx Musculoskeletal Trauma Past Surgical History: Reports: Hx Orthopedic Surgery - back 2008, L5-S1 discectomy with artificial disc replacement - Immunizations Hx Diphtheria, Pertussis, Tetanus Vaccination: - Unsure Vertical Provider Document - CONSTITUTIONAL Agree With Documented VS: Yes Exam Limitations: No Limitations General Appearance: WD/WN, No Apparent Distress - INFECTION CONTROL TRAVEL OUTSIDE OF THE [place] IN LAST 30 DAYS: No - HEENT HEENT: Atraumatic, Normal ENT Exam, Normocephalic - NECK Neck: Normal Inspection, Supple. 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 Patient without any fever no history of chronic illness. Patient denies any history of IV drug use. Patient encouraged to follow-up with orthopedics for further evaluation and to limit aggravating activities. - Vital Signs Vital signs: Temp Pulse Resp BP Pulse Ox 97.8 F 78 20 143/85 H 100 10/24/18 10:37 10/24/18 10:37 10/24/18 10:37 10/24/18 10:37 10/24/18 10:37 Discharge - Discharge Clinical Impression: Radicular pain Condition: Stable Disposition: HOME, SELF-CARE Instructions: Oral Narcotic Medication ([facility]), Radiculopathy ([facility]), Steroid Medication Additional Instructions: Return immediately for any new or worsening symptoms Followup with your primary care provider, call tomorrow to make a followup appointment Follow-up with orthopedics for further evaluation, call today for an appointment Prescriptions: Diclofenac Sodium [Voltaren] 1 applic TP QID PRN #100 gel..gm. PRN Reason: Hydrocodone/Acetaminophen [[place] 5-325 mg Tablet] 1 tab PO Q6 PRN #15 tablet PRN Reason: Prednisone [Deltasone 20 mg Tablet] 3 tab PO DAILY 4 Days tablet Forms: Smoking Cessation Education, Return to Work [facility]errals: [facility] [[facility]] - Follow up as needed [facility] [place] [facility] [Provider Group] - Follow up in 3-5 days
== END 2018-10-24 11:30 | disposition home or self-care (01) ==
LOC: ER 10:34
DX: M54.10 Radiculopathy, site unspecified (principal); M25.511 Pain in right shoulder; M79.601 Pain in right arm; R20.0 Anesthesia of skin; M54.6 Pain in thoracic spine; F17.200 Nicotine dependence, unspecified, uncomplicated
CPT/HCPCS: 99283; J7512

== ENCOUNTER → 2018-10-24 | Outpatient (CLI) | payer OTHER ==
--- NOTE | 2018-10-24 10:50 | RADIOLOGY REPORT (SQ) ---
EXAM DESCRIPTION: BONE SURVEY COMPLETE COMPLETED DATE/TIME: 10/24/2018 10:25 am REASON FOR STUDY: DISORDER OF BONE, UNSPECIFIED M89.9 DISORDER OF BONE, UNSPECIFIED COMPARISON: Two-view chest 10/21/2018 TECHNIQUE: Images of the axial and proximal appendicular skeleton are obtained, along with lateral s kull and frontal chest films. LIMITATIONS: None. FINDINGS: AP CHEST: No bony findings. Lungs are clear. Cardiac silhouette size, dayron, bony structu res unremarkable. LATERAL SKULL: No worrisome bone lesions. AP BOTH HUMERI: No worrisome bone lesions. TWO-VIEW LUMBAR SPINE: No worrisome bone lesions. Post L5-S1 surgery with disc prosthesis TWO-VIEW CERVICAL AND THORACIC SPINE: No worrisome bone lesions. Mild disc space loss of height in t he midthoracic spine. No bulky osteophytes AP PELVIS: No worrisome bone lesions. AP BOTH FEMURS: No worrisome bone lesions. OTHER: No other significant finding. IMPRESSION: NO WORRISOME BONE LESIONS. TECHNICAL DOCUMENTATION: JOB ID: [id number] [employer]- All Rights Reserved Reading location - IP/workstation name: [email or web address]
== END ==
LOC: RAD 08:45
PROVIDERS: ATTEND Internal Medicine Hematology & Oncology
DX: M89.9 Disorder of bone, unspecified (principal)
CPT/HCPCS: 77075

== ENCOUNTER 2018-11-21 11:52 | Emergency (ER) | payer OTHER ==
[2018-11-21 12:18] VITALS: BP 147/91
--- NOTE | 2018-11-21 12:33 | ER Document Report ---
ED Respiratory Problem - General Chief Complaint: Cough Stated Complaint: COUGH/WEAKNESS Time Seen by Provider: 11/21/18 12:20 Mode of Arrival: Ambulatory Information source: Patient Notes: 38-year-old male presents to ED for complaint of cough congestion and productive cough times 2 weeks. He states he smokes between 1 and 2 packs a day. He states he has a history of bronchitis and pneumonia in the past. He states he does not think he has had any fevers. Patient is alert and oriented respirations regular and unlabored speaking in full sentences walks with a even steady gait. TRAVEL OUTSIDE OF THE [place] IN LAST 30 DAYS: No - HPI Onset: Other Duration: Continuous Initiating Event: URI - 2 weeks, Other - Smokes 1-2 packs a day Quality of pain: Achy - Body aches Severity: Severe Pain Level: 5 Context: Smoker Sputum color: White Sputum consistency: Thick Associated symptoms: Congestion, Cough, PND, Runny nose, Sinus pain/pressure, Sore Throat. 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 Lives with: Friend Family History: Reviewed & Not Pertinent Patient has suicidal ideation: No Patient has homicidal ideation: No - Past Medical History Cardiac Medical History: Reports: None Pulmonary Medical History: Reports: Hx Bronchitis, Hx Pneumonia EENT Medical History: Reports: None Neurological Medical History: Reports: None Endocrine Medical History: Reports: None Renal/ Medical History: Reports: None Malignancy Medical History: Reports None GI Medical History: Reports: None Musculoskeletal Medical History: Reports Hx Musculoskeletal Deformity - Degenerative disc disease lumbar, Reports Hx Musculoskeletal Trauma - Right shoulder injury Skin Medical History: Reports None Psychiatric Medical History: Reports: None Traumatic Medical History: Reports: None Infectious Medical History: Reports: None Past Surgical History: Reports: Hx Orthopedic Surgery - back 2008, L5-S1 discectomy with artificial disc replacement, Other - Sphincterectomy - Immunizations Immunizations up to date: No Hx Diphtheria, Pertussis, Tetanus Vaccination: No - Unsure Review of Systems - Review of Systems Constitutional: Recent illness EENT: Nose congestion, Nose discharge, Sinus pressure, Sinus discharge, Throat pain Cardiovascular: No symptoms reported Respiratory: Cough Gastrointestinal: No symptoms reported Genitourinary: No symptoms reported Male Genitourinary: No symptoms reported Musculoskeletal: No symptoms reported Skin: No symptoms reported Hematologic/Lymphatic: No symptoms reported Neurological/Psychological: No symptoms reported -: Yes All other systems reviewed and negative Physical Exam - Vital signs Vitals: Temp Pulse Resp BP Pulse Ox 98.9 F 82 20 147/91 H 98 11/21/18 12:09 11/21/18 12:09 11/21/18 12:09 11/21/18 12:09 11/21/18 12:09 Interpretation: Normal - General General appearance: Appears well, Alert - HEENT Head: Normocephalic, Atraumatic Eyes: Normal Pupils: PERRL Ears: Normal External canal: Normal Tympanic membrane: Normal Sinus: Normal Nasal: Purulent discharge, Swelling Mouth/Lips: Normal Mucous membranes: Normal Pharynx: Post nasal drainage Neck: Normal - Respiratory Respiratory status: No respiratory distress Chest status: Nontender Breath sounds: Nonproductive cough, Rhonchi Chest palpation: Normal - Cardiovascular Rhythm: Regular Heart sounds: Normal auscultation Murmur: No - Abdominal Inspection: Normal Distension: No distension Bowel sounds: Normal Tenderness: Nontender Organomegaly: No organomegaly - Back Back: Normal, Nontender - Extremities General upper extremity: Normal inspection, Nontender, Normal color, Normal ROM, Normal temperature General lower extremity: Normal inspection, Nontender, Normal color, Normal ROM, Normal temperature, Normal weight bearing. No: Kori's sign - Neurological Neuro grossly intact: Yes Cognition: Normal Orientation: AAOx4 [place] Coma Scale Eye Opening: Spontaneous [place] Coma Scale Verbal: Oriented [place] Coma Scale Motor: Obeys Commands [place] Coma Scale Total: 15 Speech: Normal Motor strength normal: LUE, RUE, LLE, RLE Sensory: Normal - Psychological Associated symptoms: Normal affect, Normal mood - Skin Skin Temperature: Warm Skin Moisture: Dry Skin Color: Normal Course - Re-evaluation Re-evalutation: 11/21/18 13:22 Chest ray is negative for any cardiopulmonary changes. He does smoke 1-2 packs/day. I have explained to him about the need to reduce his smoking for his health. I have given him the #1 800 quit now to try to get assistance with this. I have explained to him that that increases his respiratory symptoms. Patient was discharged home with instructions on using Coricidin HB for his cough and cold symptoms and to help with his breathing. Patient verbalized understanding and agreement with treatment plan. - Vital Signs Vital signs: Temp Pulse Resp BP Pulse Ox 98.9 F 82 20 147/91 H 98 11/21/18 12:11/21/18 12:11/21/18 12:11/21/18 12:11/21/18 12:09 - Diagnostic Test Radiology reviewed: Image reviewed, Reports reviewed Discharge - Discharge Clinical Impression: Tobacco abuse URI (upper respiratory infection) Qualifiers: URI type: unspecified URI Qualified Code(s): J06.9 - Acute upper respiratory infection, unspecified Condition: Stable Disposition: HOME, SELF-CARE Additional Instructions: UPPER RESPIRATORY ILLNESS: You have a viral infection of the respiratory passages -- a "cold." This common infection causes nasal congestion, drainage, and often sore throat and cough. It is highly contagious. The disease usually lasts about 10 to 14 days. There is no "cure" for the viral infection -- it must run its course. If there is a complication, such as bacterial infection in the nose, sinuses, middle ear, or bronchial tubes, antibiotics may be required. The antibiotics won't affect the virus. Drink plenty of fluids. A humidifier may help. An expectorant medication or decongestant may make you more comfortable. Use acetaminophen or ibuprofen for fever or aches. See the doctor if fever persists over two days, if there is any significant worsening of your symptoms, or if you simply fail to improve as expected. COUGH-SUPPRESSANT & EXPECTORANT MEDICATION: You are to use a cough medication as needed for relief of symptoms. This medicine is a combination of an expectorant (to make the mucous thinner and more easily "coughed up") and a cough suppressant (to reduce the frequency of coughing). The cough-suppressant medicine is related to narcotics. You may experience mild nausea and sleepiness. Some patients who are very sensitive to narcotics may have stomach pain from this medicine. Taking the medicine with food reduces these side effects. Do not drive or work with machinery until you know how this medicine affects you. The expectorant should have no side effects. Iodine-containing expectorants (such as organidin) should not be taken by persons with active thyroid disease unless approved by your doctor. Call the doctor if you develop shortness of breath, hives, rash, itching, lightheadedness, or severe nausea and vomiting. USE OF ACETAMINOPHEN (Tylenol): Acetaminophen may be taken for pain relief or fever control. It's much safer than aspirin, offering a wider range of "safe" dosages. It is safe during . Some brand names are Tylenol, Panadol, Datril, Anacin 3, Tempra, and Liquiprin. Acetaminophen can be repeated every four hours. The following are maximum recommended dosages: >89 pounds or adults 650 mg to 900 mg Acetaminophen can be repeated every four hours. Maximum dose not to exceed 4000 mg a day. SMOKING: If you smoke, you should stop smoking. The tar and chemicals in cigarette smoke are harmful. Smoking has been shown to cause: emphysema chronic bronchitis lung cancer mouth and throat cancer stomach and pancreas cancer premature aging defects In addition, smoking increases ear and lung infections in children of smokers. Due to your elevated blood pressure you should try Coricidin HB for your cough cold congestion. You also should consider reducing the your number of cigarettes by a great deal. The smoking is not helping your cough cold and congestion. You may want to call 1 800 quit now for help with your tobacco abuse. FOLLOW-UP CARE: If you have been referred to a physician for follow-up care, call the physicians office for an appointment as you were instructed or within the next two days. If you experience worsening or a significant change in your symptoms, notify the physician immediately or return to the Emergency Department at any time for re-evaluation. Forms: Elevated Blood Pressure, Smoking Cessation Education, Return to Work Referrals: [facility] [[facility]] - Follow up as needed
--- NOTE | 2018-11-21 13:01 | RADIOLOGY REPORT (SQ) ---
EXAM DESCRIPTION: CHEST 2 VIEWS COMPLETED DATE/TIME: 11/21/2018 12:52 pm REASON FOR STUDY: cough congestion COMPARISON: 10/21/2018 EXAM PARAMETERS: NUMBER OF VIEWS: two views TECHNIQUE: Digital Frontal and Lateral radiographic views of the chest acquired. RADIATION DOSE: NA LIMITATIONS: none FINDINGS: LUNGS AND PLEURA: No opacities, masses or pneumothorax. No pleural effusion. MEDIASTINUM AND HILAR STRUCTURES: No masses or contour abnormalities. HEART AND VASCULAR STRUCTURES: Heart normal size. No evidence for failure. BONES: No acute findings. HARDWARE: None in the chest. OTHER: No other significant finding. IMPRESSION: 1. No significant interval changes since the prior examination dated 10/21/2018. No ac [place] findings. TECHNICAL DOCUMENTATION: JOB ID: [id number] [employer]- All Rights Reserved Reading location - IP/workstation name: [email or web address]
== END 2018-11-21 13:42 | disposition home or self-care (01) ==
LOC: ER 11:52
DX: J06.9 Acute upper respiratory infection, unspecified (principal); F17.210 Nicotine dependence, cigarettes, uncomplicated; Z71.6 Tobacco abuse counseling; Z87.01 Personal history of pneumonia (recurrent); R09.82 Postnasal drip; R09.89 Other specified symptoms and signs involving the circulatory and respiratory systems; J34.89 Other specified disorders of nose and nasal sinuses; J02.9 Acute pharyngitis, unspecified; R09.81 Nasal congestion
CPT/HCPCS: 71046; 99283; 99406

== ENCOUNTER 2018-12-01 06:36 | Emergency (ER) | payer OTHER ==
[2018-12-01] MEDS ORDERED: RINGERS SOLUTION,LACTATED 1,000 ML IV ONE (07:04)
[2018-12-01] MEDS ORDERED: KETOROLAC TROMETHAMINE INJ/PF 30 MG/1 ML SDV IV ONE (07:18)
--- NOTE | 2018-12-01 08:08 | ER Document Report ---
ED General - General Chief Complaint: Tremor Stated Complaint: BODY SPASMS Time Seen by Provider: 12/01/18 06:54 TRAVEL OUTSIDE OF THE [place] IN LAST 30 DAYS: No - HPI Patient complains to provider of: Tremors Notes: Patient coming in for evaluation of tremors patient states tremors in his upper and lower extremities. Patient states ongoing for the last 4-5 days worsening now causing him to have inability to walk like normal. Patient denies any trauma patient does state he has a history of back surgery however he is having tremors in his upper extremities. Denies any fever chills nausea vomiting diarrhea patient was recently seen for cough and cold however states no chills no fevers states no exposure to any sick contacts. Patient initially states he is has been having trouble having a bowel movement however states he took medication to aid with the situation did have a bowel movement this morning. Patient also states for his symptoms that he was seen for a few days ago that he was taking NyQuil for patient states he is taking NyQuil as directed and is not over indulging in his medication. Patient initially also states that he is having difficulty time and stay well-hydrated however patient did not reiterates that he is drank approximately 10 bottles of water. Otherwise patient is resting comfortably does have a slight tremor this is intermittent and seems to dissipate whenever the patient's attention is point elsewhere. Patient denies any alcohol abuse denies any smoking denies any drug abuse - Related Data Allergies/Adverse Reactions: No Known Allergies Allergy (Verified 11/21/18 11:56) Past Medical History - Social History Smoking Status: Current Every Day Smoker Family History: Reviewed & Not Pertinent Patient has suicidal ideation: No Patient has homicidal ideation: No Pulmonary Medical History: Reports: Hx Bronchitis, Hx Pneumonia Renal/ Medical History: Denies: Hx Peritoneal Dialysis Musculoskeletal Medical History: Reports Hx Musculoskeletal Deformity - Degenerative disc disease lumbar, Reports Hx Musculoskeletal Trauma - Right shoulder injury Past Surgical History: Reports: Hx Orthopedic Surgery - back 2008, L5-S1 discectomy with artificial disc replacement, Other - Sphincterectomy - Immunizations Immunizations up to date: No Hx Diphtheria, Pertussis, Tetanus Vaccination: No - Unsure Review of Systems - Review of Systems Constitutional: No symptoms reported EENT: No symptoms reported Cardiovascular: No symptoms reported Respiratory: No symptoms reported Gastrointestinal: No symptoms reported Genitourinary: No symptoms reported Male Genitourinary: No symptoms reported Musculoskeletal: Other - Tremors Skin: No symptoms reported Hematologic/Lymphatic: No symptoms reported Neurological/Psychological: No symptoms reported -: Yes All other systems reviewed and negative Physical Exam - Vital signs Vitals: Temp Pulse Resp BP Pulse Ox 98.1 F 93 18 154/95 H 97 12/01/18 06:40 12/01/18 06:40 12/01/18 06:40 12/01/18 06:40 12/01/18 06:40 Interpretation: Normal - General General appearance: Appears well, Alert - HEENT Head: Normocephalic, Atraumatic Eyes: Normal Pupils: PERRL - Respiratory Respiratory status: No respiratory distress Chest status: Nontender Breath sounds: Normal Chest palpation: Normal - Cardiovascular Rhythm: Regular Heart sounds: Normal auscultation Murmur: No - Abdominal Inspection: Normal Distension: No distension Bowel sounds: Normal Tenderness: Nontender Organomegaly: No organomegaly - Back Back: Normal, Nontender - Extremities General upper extremity: Normal inspection, Nontender, Normal color, Normal ROM, Normal temperature General lower extremity: Normal inspection, Nontender, Normal color, Normal ROM, Normal temperature, Normal weight bearing - Neurological Neuro grossly intact: Yes Cognition: Normal Orientation: AAOx4 Ana Coma Scale Eye Opening: Spontaneous Ana Coma Scale Verbal: Oriented [place] Coma Scale Motor: Obeys Commands Ana Coma Scale Total: 15 Speech: Normal Cranial nerves: Normal Cerebellar coordination: Normal Motor strength normal: LUE, RUE, LLE, RLE Additional motor exam normals: Equal director of database marketing Babinski reflex: Normal (flexor plantar) Sensory: Normal - Psychological Associated symptoms: Normal affect, Normal mood - Skin Skin Temperature: Warm Skin Moisture: Dry Skin Color: Normal Course - Re-evaluation Re-evalutation: 12/01/18 08:06 Patient with a normal neurological evaluation. Cranial nerves are intact patient is able to move all 4 extremities equal director of database marketing strength was equal push pull patient is able to lift his legs up off the stretcher equally Babinski is normal finger to nose is normal ocular motions are intact. Physical examination does not limit itself to a critical etiology for the patient having intermittent tremors. Again the tremors are intermittent and seems to dissipate whenever the patient's attention is point elsewhere. Offered the patient a basic metabolic panel to check out for electrolytes and IV fluids and explained to the patient more likely he would need to follow-up with his primary care physician for further evaluation patient agrees with IV fluids and basic in panel at this time. 12/01/18 08:55 Patient reevaluated seen sleeping patient has no murmurs Y sleeping. Easily aroused patient's laboratory studies not show any critical pathology was given a fluid bolus here. Patient was [facility] patient will be discharged home - Vital Signs Vital signs: Temp Pulse Resp BP Pulse Ox 98.1 F 93 18 154/95 H 97 12/01/18 06:40 12/01/18 06:40 12/01/18 06:40 12/01/18 06:40 12/01/18 06:40 - Laboratory Result Diagrams: 12/01/18 07:37 Laboratory results interpreted by me: 12/01/18 07:37 Potassium 5.1 H Discharge - Discharge Clinical Impression: Resting tremor Condition: Good Disposition: HOME, SELF-CARE Instructions: Normal Exam and Workup ([facility]) Additional Instructions: Physical examination does not reveal any neurological issues that would be causing your tremors. Your laboratory studies also did not show any much light and balance. I recommend she follow-up with your primary care physician for further evaluation please make sure you eat a healthy diet drink plenty fluids. Referrals: [facility] [[facility]] - Follow up as needed
[2018-12-01 08:12] LABS: ANION GAP 5 (5-19); BLOOD UREA NITROGEN 11 mg/dL (7-20); CALCIUM 9.3 mg/dL (8.4-10.2); CARBON DIOXIDE 30 mmol/L (22-30); CHLORIDE 105 mmol/L (98-107); GLUCOSE 100 mg/dL (75-110); PHOSPHORUS 4.2 mg/dL (2.5-4.5); POTASSIUM 5.1 mmol/L (3.6-5.0); SODIUM 140.1 mmol/L (137-145)
[2018-12-01 09:24] VITALS: BP 149/85
== END 2018-12-01 09:25 | disposition home or self-care (01) ==
LOC: ER 06:36
DX: R25.1 Tremor, unspecified (principal)
CPT/HCPCS: 99284; 96374; 36415; 83735; 84100; 80048; J1885; J7120

== ENCOUNTER 2018-12-25 16:56 | Emergency (ER) | payer OTHER ==
[2018-12-25 21:28] LABS: ABSOLUTE EOSINOPHILS # (AUTO) 0.3 10^3/uL (0.0-0.6); ABSOLUTE LYMPHOCYTES (AUTO) 3.1 10^3/uL (0.5-4.7); ABSOLUTE MONOCYTES (AUTO) 0.5 10^3/uL (0.1-1.4); BASOPHILS % (AUTO) 0.5 % (0-2); EOSINOPHILS % (AUTO) 3.2 % (0-6); HEMATOCRIT 44.7 % (37.9-51.0); HEMOGLOBIN 15.6 g/dL (13.5-17.0); LYMPHOCYTES % (AUTO) 39.1 % (13-45); MEAN CORPUSCULAR HEMOGLOBIN 32.1 pg (27.0-33.4); MEAN CORPUSCULAR HGB CONC 34.9 g/dL (32.0-36.0); MEAN CORPUSCULAR VOLUME 92 fl (80-97); MONOCYTES % (AUTO) 6.6 % (3-13); PLATELET COUNT 192 10^3/uL (150-450); RED BLOOD COUNT 4.85 10^6/uL (4.35-5.55); RED CELL DISTRIBUTION WIDTH 12.8 % (11.5-14.0); SEGMENTED NEUTROPHILS % (AUTO) 50.6 % (42-78); TOTAL CELLS COUNTED % (AUTO) 100 %
[2018-12-25 21:33] LABS: APPEARANCE,URINE SLIGHTLY-CLOUDY; BILIRUBIN,URINE NEGATIVE (NEGATIVE); COLOR,URINE YELLOW; GLUCOSE, URINE NEGATIVE (NEGATIVE); KETONES,URINE NEGATIVE (NEGATIVE); LEUKOCYTE ESTERASE,URINE NEGATIVE (NEGATIVE); NITRITE,URINE NEGATIVE (NEGATIVE); PROTEIN,URINE NEGATIVE (NEGATIVE); URINE SPECIFIC GRAVITY 1.006; UROBILINOGEN,URINE NEGATIVE mg/dL (<2.0)
[2018-12-25 21:46] LABS: ALANINE AMINOTRANSFERASE 52 U/L (21-72); ALBUMIN 4.3 g/dL (3.5-5.0); ALKALINE PHOSPHATASE 74 U/L (38-126); ANION GAP 8 (5-19); ASPARTATE AMINO TRANSFERASE 32 U/L (17-59); BILIRUBIN,DIRECT 0.2 mg/dL (0.0-0.4); BILIRUBIN,TOTAL 0.3 mg/dL (0.2-1.3); BLOOD UREA NITROGEN 9 mg/dL (7-20); CARBON DIOXIDE 33 mmol/L (22-30); CHLORIDE 100 mmol/L (98-107); GLUCOSE 105 mg/dL (75-110); POTASSIUM 4.7 mmol/L (3.6-5.0); SODIUM 141.4 mmol/L (137-145); TOTAL PROTEIN 6.6 g/dL (6.3-8.2)
[2018-12-25] MEDS ORDERED: SIMETHICONE 80 MG TAB.CHEW PO ONE (23:53)
[2018-12-25] MEDS ORDERED: ACETAMINOPHEN 325 MG TABLET PO ONE (23:53)
[2018-12-26] MEDS ORDERED: MORPHINE SULFATE 10 MG/ML INJ IV PRN (00:28)
[2018-12-26] MEDS ORDERED: NORMAL SALINE 1000 ML 1,000 ML IV ONE (00:28)
[2018-12-26] MEDS ORDERED: ONDANSETRON HCL INJ/PF 4 MG/2 ML SDV IV ONE (00:28)
--- NOTE | 2018-12-26 00:43 | ER Document Report ---
ED General - General Chief Complaint: Back Pain Stated Complaint: BACK PAIN Time Seen by Provider: 12/25/18 23:53 Primary Care Provider: BILL BHANDARI [Primary Care Provider] - Follow up as needed Notes: Patient is a 38-year-old male with a past medical history of chronic low back pain, prior history of internal anal sphincterotomy, no prior abdominal surgical history who presents complaining of 2 weeks of intermittent abdominal bloating and low back pain. States the pain is become more intense in the last 48 hours. Describes it as a bloating, cramping, diffuse abdominal pain slightly worse in the upper abdomen. Pain in the back radiates to the low back. This is described as a throbbing, aching, spasming pain. Patient denies history of similar symptoms in the past. Notes associated nausea but no vomiting. Admits to intermittent alcohol use but nothing heavy. No prior history of pancreatitis. Has not seen his primary physician regarding today's concerns. TRAVEL OUTSIDE OF THE [place] IN LAST 30 DAYS: No - Related Data Allergies/Adverse Reactions: No Known Allergies Allergy (Verified 11/21/18 11:56) Past Medical History - General Information source: Patient - Social History Smoking Status: Current Every Day Smoker Frequency of alcohol use: Occasional Drug Abuse: None Family History: Reviewed & Not Pertinent Patient has suicidal ideation: No Patient has homicidal ideation: No Pulmonary Medical History: Reports: Hx Bronchitis, Hx Pneumonia Renal/ Medical History: Denies: Hx Peritoneal Dialysis Musculoskeletal Medical History: Reports Hx Musculoskeletal Deformity - Degenerative disc disease lumbar, Reports Hx Musculoskeletal Trauma - Right shoulder injury Past Surgical History: Reports: Hx Orthopedic Surgery - back 2008, L5-S1 discectomy with artificial disc replacement, Other - Sphincterectomy - Immunizations Immunizations up to date: No Hx Diphtheria, Pertussis, Tetanus Vaccination: No - Unsure Review of Systems - Review of Systems Notes: Constitutional: Negative for fever. HENT: Negative for sore throat. Eyes: Negative for visual changes. Cardiovascular: Negative for chest pain. Respiratory: Negative for shortness of breath. Gastrointestinal: Positive for abdominal pain and nausea Genitourinary: Negative for dysuria. Musculoskeletal: Positive for low back pain Skin: Negative for rash. Neurological: Negative for headaches, weakness or numbness. 10 point ROS negative except as marked above and in HPI. Physical Exam - Vital signs Vitals: Temp Pulse Resp BP Pulse Ox 98.4 F 82 16 121/79 100 12/25/18 18:11 12/25/18 18:11 12/25/18 18:11 12/25/18 18:11 12/25/18 18:11 Interpretation: Normal Notes: PHYSICAL EXAMINATION: GENERAL: Well-appearing, well-nourished and in no acute distress. HEAD: Atraumatic, normocephalic. EYES: Pupils equal round and reactive to light, extraocular movements intact, sclera anicteric, conjunctiva are normal. ENT: nares patent, oropharynx clear without exudates. Moist mucous membranes. NECK: Normal range of motion, supple without lymphadenopathy LUNGS: Breath sounds clear to auscultation bilaterally and equal. No wheezes rales or rhonchi. HEART: Regular rate and rhythm without murmurs ABDOMEN: Soft, nontender, normoactive bowel sounds. No guarding, no rebound. No masses appreciated. Back: No midline spinal tenderness, step-offs or deformity EXTREMITIES: Normal range of motion, no pitting or edema. No cyanosis. NEUROLOGICAL: No focal neurological deficits. Moves all extremities spontaneously and on command. PSYCH: Normal mood, normal affect. SKIN: Warm, Dry, normal turgor, no rashes or lesions noted. Course - Re-evaluation Re-evalutation: 12/26/18 00:38 Patient presents with clinical history and exam and labs to suggest acute pancreatitis. Lipase is markedly elevated today. At time of arrival, patient's vitals are within normal limits, they are well-appearing and in no acute distress. The patient has tolerated oral intake without difficulty and has not had any vomiting with today's presentation. Pain was able to be controlled here in the emergency department with oral medications. Linden score is 0. Patient is an appropriate candidate for outpatient management of this acute episode of pancreatitis using oral pain medications, antiemetics, and re commendations for a clear liquid diet until pain has resolved. 2 view abdomen and RUQ ultrasound unremarkable. At this time will discharge with return precautions and follow-up recommendations. Verbal discharge instructions given a the bedside and opportunity for questions given. Medication warnings reviewed. Patient is in agreement with this plan and has verbalized understanding of return precautions and the need for primary care follow-up in the next 24-72 hours. - Vital Signs Vital signs: Temp Pulse Resp BP Pulse Ox 98.4 F 82 16 102/90 H 100 12/25/18 18:11 12/25/18 18:11 12/25/18 18:11 12/26/18 01:40 12/26/18 01:40 - Laboratory Result Diagrams: 12/25/18 21:05 12/25/18 21:05 Laboratory results interpreted by me: 12/25/18 21:05 Carbon Dioxide 33 H Lipase 1596.0 H Discharge - Discharge Clinical Impression: Ileus, Nausea Pancreatitis Qualifiers: Chronicity: acute Pancreatitis type: unspecified pancreatitis type Acute pancreatitis complication: unspecified Qualified Code(s): K85.90 - Acute pancreatitis without necrosis or infection, unspecified Condition: Good Disposition: HOME, SELF-CARE Additional Instructions: You were seen today for pancreatitis. Your case today appears very mild and it is safe for you to go home today with medications for pain and nausea. Please drink plenty of fluids over the next several days and try to avoid food ingestion until your pain is resolved. Take 2 capfuls of MiraLAX in the morning and 2 capfuls of MiraLAX at night. Please return to the emergency department immediately if you develop persistent vomiting that prohibits you from taking your medications or keeping fluids down, you develop a fever of greater than 101F, you have worsening pain, you become confused, you become short of breath, or have any other symptoms that are worrisome to you. Please follow-up with your primary care doctor in the next 24-48 hours. Referrals: [facility] [[facility] - Follow up tomorrow
--- NOTE | 2018-12-26 01:20 | ER Document Report ---
ED Medical Screen (RME) - General Chief Complaint: Back Pain Stated Complaint: BACK PAIN Time Seen by Provider: 12/25/18 23:53 Primary Care Provider: BILL BHANDARI [Primary Care Provider] - Follow up as needed Notes: 38-year-old male coming in today with persistent abdominal bloating and gassiness which is causing significant back pain. Patient states that he is having great difficulties moving his bowels. Has had a couple of different GI scopes which have not revealed any definite pathology. I have treated and performed a rapid initial assessment of this patient. A comprehensive ED assessment and evaluation of the patient, analysis of test results and completion of medical decision making process will be conducted by additional ED providers. PHYSICAL EXAMINATION: GENERAL: Well-appearing, well-nourished and in no acute distress. A&Ox4. Answers questions appropriately. LUNGS: Breath sounds clear to auscultation bilaterally and equal. No wheezes rales or rhonchi. HEART: Regular rate and rhythm without murmurs, rubs, gallops. ABDOMEN: Soft, nondistended abdomen. No guarding, no Extremities: No cyanosis, clubbing, or edema b/l. NEUROLOGICAL: Normal speech, normal gait. PSYCH: Normal mood, normal affect. TRAVEL OUTSIDE OF THE [place] IN LAST 30 DAYS: No - Related Data Allergies/Adverse Reactions: No Known Allergies Allergy (Verified 11/21/18 11:56) Past Medical History - Social History Frequency of alcohol use: Occasional Drug Abuse: None Pulmonary Medical History: Reports: Hx Bronchitis, Hx Pneumonia Renal/ Medical History: Denies: Hx Peritoneal Dialysis Musculoskeltal Medical History: Reports Hx Musculoskeletal Deformity - Degene rative disc disease lumbar, Reports Hx Musculoskeletal Trauma - Right shoulder injury Past Surgical History: Reports: Hx Orthopedic Surgery - back 2007, L5-S1 discectomy with artificial disc replacement, Other - Sphincterectomy - Immunizations Immunizations up to date: No Hx Diphtheria, Pertussis, Tetanus Vaccination: No - Unsure History of Influenza Vaccine for 08/2017 - 01/2018 Season: No Physical Exam - Vital signs Vitals: Temp Pulse Resp BP Pulse Ox 98.4 F 82 16 121/79 100 12/25/18 18:11 12/25/18 18:11 12/25/18 18:11 12/25/18 18:11 12/25/18 18:11 Course - Vital Signs Vital signs: Temp Pulse Resp BP Pulse Ox 98.4 F 82 16 121/79 100 12/25/18 18:11 12/25/18 18:11 12/25/18 18:11 12/25/18 18:11 12/25/18 18:11 - Laboratory Result Diagrams: 12/25/18 21:05 12/25/18 21:05 Laboratory results interpreted by me: 12/25/18 21:05 Carbon Dioxide 33 H Lipase 1596.0 H Doctor's Discharge - Discharge [facility]errals: [facility] [[facility] - Follow up as needed
--- NOTE | 2018-12-26 01:39 | RADIOLOGY REPORT (SQ) ---
EXAM DESCRIPTION: US ABDOMEN LIMITED COMPLETED DATE/TME: 12/26/2018 00:27 CLINICAL HISTORY: 38 years, Male, abdominal pain, bloating COMPARISON: None. TECHNIQUE: Limited right upper quadrant ultrasound LIMITATIONS: None. FINDINGS: Limited study secondary to extensive patient motion and discomfort. Echogenic appearance to the liver consistent with fatty infiltrative change. No definitive gallstones or gallbladder wall thickening. Negative sonographic Limon sign. No pericholecystic fluid. Questionable trace of sludge in the gallbladder lumen. CBD measures 4.3 mm. Visualized pancreas, abdominal aorta, right kidney are unremarkable. No ascites IMPRESSION: Fatty infiltrative change to the liver. Question trace of sludge in the gallbladder lumen. Remainder unremarkable copyright 2010 [employer]- All Rights Reserved
--- NOTE | 2018-12-26 02:35 | RADIOLOGY REPORT (SQ) ---
EXAM DESCRIPTION: XR ABDOMEN 2 VIEWS SUPINE ERECT COMPLETED DATE/TME: 12/26/2018 00:27 CLINICAL HISTORY: 38 years, Male, abdominal pain, bloating COMPARISON: None. NUMBER OF VIEWS: 3 TECHNIQUE: Supine and erect views of the abdomen LIMITATIONS: None. FINDINGS: Nonspecific, nonobstructive bowel gas pattern. Abundant stool in the colon. A few nondilated small bowel air-fluid levels may reflect ileus. No free air. Post surgical changes of the lumbosacral spine. Curvilinear density projecting over the right lower quadrant. This is nonspecific IMPRESSION: Nonspecific bowel gas pattern, with a few nondilated air-fluid levels likely reflecting ileus copyright 2010 [employer]- All Rights Reserved
[2018-12-26] MEDS ORDERED: ONDANSETRON ODT 4 MG TAB (6 TAB/ER DISP) PO PRN (02:37)
[2018-12-26] MEDS ORDERED: HYDROCODONE/ACETAMINOPHEN 5-325 MG (6 TAB/ER DISP) PO PRN (02:37)
[2018-12-26 03:06] VITALS: BP 123/88
== END 2018-12-26 03:06 | disposition home or self-care (01) ==
LOC: ER 16:56
DX: K56.7 Ileus, unspecified (principal); K85.90 Acute pancreatitis without necrosis or infection, unspecified; G89.29 Other chronic pain; M54.5 Low back pain; F17.200 Nicotine dependence, unspecified, uncomplicated
CPT/HCPCS: 99284; 96361; 96374; 96375; 36415; 83690; 85025; 80053; 81001; 74019; 76705; J2270; J2405; J7030

== ENCOUNTER 2019-04-10 07:58 | Emergency (ER) | payer OTHER ==
[2019-04-10] MEDS ORDERED: PSEUDOEPHEDRINE HCL 30 MG TABLET PO ONE (10:08)
--- NOTE | 2019-04-10 10:12 | ER Document Report ---
HPI - HPI Patient complains to provider of: Sinus congestion Time Seen by Provider: 04/10/19 09:44 Onset: Yesterday Onset/Duration: Gradual Quality of pain: Achy Pain Level: 4 Context: Patient presents complaining of sinus congestion started yesterday. No fever. Patient denies any ear pain or cough. Associated Symptoms: Rhinnorhea, Sinus pain/drainage. denies: Nonproductive cough, Productive cough, Earache, Fever, Nausea, Sore throat Exacerbated by: Denies Relieved by: Denies Similar symptoms previously: Yes Recently seen / treated by doctor: No - ROS ROS below otherwise negative: Yes Systems Reviewed and Negative: Yes All other systems reviewed and negative - CONSTITUTIONAL Constitutional: REPORTS: Chills. DENIES: Fever - EENT EENT: REPORTS: Nasal Drainage-Clear, Congestion. 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 Family History: Reviewed & Not Pertinent Patient has suicidal ideation: No Patient has homicidal ideation: No Pulmonary Medical History: Reports: Hx Bronchitis, Hx Pneumonia Renal/ Medical History: Denies: Hx Peritoneal Dialysis Musculoskeletal Medical History: Reports Hx Musculoskeletal Deformity - Degenerative disc disease lumbar, Reports Hx Musculoskeletal Trauma - Right shoulder injury Skin Medical History: Reports Hx Eczema Past Surgical History: Reports: Hx Orthopedic Surgery - back 2008, L5-S1 discectomy with artificial disc replacement, Other - Sphincterectomy - Immunizations Immunizations up to date: No Hx Diphtheria, Pertussis, Tetanus Vaccination: No - Unsure Vertical Provider Document - CONSTITUTIONAL Agree With Documented VS: Yes Exam Limitations: No Limitations General Appearance: WD/WN, No Apparent Distress - INFECTION CONTROL TRAVEL OUTSIDE OF THE [place] IN LAST 30 DAYS: No - HEENT HEENT: Atraumatic, Normocephalic. negative: Pharyngeal Exudate, Pharyngeal Tenderness, Pharyngeal Erythema, Tympanic Membrane Red, Tympanic Membrane Bulging Notes: Clear rhinorrhea, swollen nasal mucosa. No sinus tenderness or swelling - NECK Neck: Normal Inspection, Supple. negative: Lymphadenopathy-Left, Lymphadenopathy-Right - RESPIRATORY Respiratory: Breath Sounds Normal, No Respiratory Distress - CARDIOVASCULAR Cardiovascular: Regular Rate, Regular Rhythm, No Murmur - MUSCULOSKELETAL/EXTREMETIES Musculoskeletal/Extremeties: MAEW - NEURO Level of Consciousness: Awake, Alert, Appropriate Motor/Sensory: No Motor Deficit - DERM Integumentary: Warm, Dry, No Rash Course - Re-evaluation Re-evalutation: 04/10/19 10:08 Patient with sinus congestion symptoms that started yesterday. No fever. Patient with upper respiratory symptoms, no concern for acute bacterial sinusitis at this time. - Vital Signs Vital signs: Temp Pulse Resp BP Pulse Ox 98.3 F 97 18 127/83 H 99 04/10/19 08:08 04/10/19 08:08 04/10/19 08:08 04/10/19 08:08 04/10/19 08:08 Discharge - Discharge Clinical Impression: Sinus congestion Upper respiratory infection Qualifiers: URI type: unspecified URI Qualified Code(s): J06.9 - Acute upper respiratory infection, unspecified Condition: Stable Disposition: HOME, SELF-CARE Instructions: Upper Respiratory Illness ([facility]) Additional Instructions: Return immediately for any new or worsening symptoms Followup with your primary care provider, call tomorrow to make a followup appointment Take Sudafed [id number] as directed to help with nasal congestion symptoms Use saline nasal wash to help with sinus congestion Prescriptions: Cetirizine HCl [Zyrtec 10 mg Tablet] 1 tab PO DAILY #30 tablet Fluticasone Propionate [Flonase Nasal [place] 50 Mcg/[place] 16 gm] 2 spray NASL DAILY #1 bottle Forms: Smoking Cessation Education, Return to Work Referrals: [facility] [Provider Group] - Follow up as needed
[2019-04-10 10:24] VITALS: BP 131/76
== END 2019-04-10 10:23 | disposition home or self-care (01) ==
LOC: ER 07:58
DX: J06.9 Acute upper respiratory infection, unspecified (principal); R09.81 Nasal congestion; R68.83 Chills (without fever); F17.200 Nicotine dependence, unspecified, uncomplicated
CPT/HCPCS: 99283

== ENCOUNTER 2020-01-20 07:37 | Emergency (ER) | payer OTHER ==
--- NOTE | 2020-01-20 10:36 | ER Document Report ---
ED General - General Chief Complaint: Congestion Stated Complaint: DIFFICULTY BREATHING Time Seen by Provider: 01/20/20 10:03 Mode of Arrival: Ambulatory Information source: Patient TRAVEL OUTSIDE OF THE [place] IN LAST 30 DAYS: No - HPI Notes: Patient presents with cough cold congestion times several weeks. States he is also felt that his sinuses have been draining. Patient symptoms are moderate. They are worse with exertion and better with rest. There is no significant radiation of the symptoms. The cough has been nonproductive. The symptoms have been intermittent. - Related Data Allergies/Adverse Reactions: No Known Allergies Allergy (Verified 01/20/20 07:57) Past Medical History - General Information source: Patient - Social History Smoking Status: Current Every Day Smoker Chew tobacco use (# tins/day): No Frequency of alcohol use: None Drug Abuse: None Family History: Reviewed & Not Pertinent Patient has suicidal ideation: No Patient has homicidal ideation: No Pulmonary Medical History: Reports: Hx Bronchitis, Hx Pneumonia Renal/ Medical History: Denies: Hx Peritoneal Dialysis Musculoskeletal Medical History: Reports Hx Musculoskeletal Deformity - De generative disc disease lumbar, Reports Hx Musculoskeletal Trauma - Right shoulder injury Skin Medical History: Reports Hx Eczema Past Surgical History: Reports: Hx Orthopedic Surgery - back 2007, L5-S1 discectomy with artificial disc replacement, Other - Sphincterectomy - Immunizations Immunizations up to date: No Hx Diphtheria, Pertussis, Tetanus Vaccination: No - Unsure Review of Systems - Review of Systems Constitutional: Chills, Recent illness Cardiovascular: denies: Chest pain, Palpitations Respiratory: Cough. denies: Short of breath -: Yes All other systems reviewed and negative Physical Exam - Vital signs Vitals: Temp Pulse Resp BP Pulse Ox 98.3 F 78 18 142/87 H 95 01/20/20 07:43 01/20/20 07:43 01/20/20 07:43 01/20/20 07:43 01/20/20 07:43 Interpretation: Normal - General General appearance: Appears well, Alert - HEENT Head: Normocephalic, Atraumatic Eyes: Normal Pupils: PERRL - Respiratory Respiratory status: No respiratory distress Chest status: Nontender Breath sounds: Normal Chest palpation: Normal - Cardiovascular Rhythm: Regular Heart sounds: Normal auscultation Murmur: No - Abdominal Inspection: Normal Distension: No distension Bowel sounds: Normal Tenderness: Nontender Organomegaly: No organomegaly - Back Back: Normal, Nontender - Extremities General upper extremity: Normal inspection, Nontender, Normal color, Normal ROM, Normal temperature General lower extremity: Normal inspection, Nontender, Normal color, Normal ROM, Normal temperature, Normal weight bearing. No: Kori's sign - Neurological Neuro grossly intact: Yes Cognition: Normal Orientation: AAOx4 [place] Coma Scale Eye Opening: Spontaneous [place] Coma Scale Verbal: Oriented Ana Coma Scale Motor: Obeys Commands [place] Coma Scale Total: 15 Speech: Normal Motor strength normal: LUE, RUE, LLE, RLE Sensory: Normal - Psychological Associated symptoms: Normal affect, Normal mood - Skin Skin Temperature: Warm Skin Moisture: Dry Skin Color: Normal Course - Vital Signs Vital signs: Temp Pulse Resp BP Pulse Ox 98.3 F 78 18 142/87 H 95 01/20/20 07:43 01/20/20 07:43 01/20/20 07:43 01/20/20 07:43 01/20/20 07:43 Discharge - Discharge Clinical Impression: URI (upper respiratory infection) Qualifiers: URI type: unspecified URI Qualified Code(s): J06.9 - Acute upper respiratory infection, unspecified Condition: Stable Disposition: HOME, SELF-CARE Instructions: Upper Respiratory Illness ([facility]) Prescriptions: Benzonatate [Tessalon Perles 100 mg Capsule] 100 mg PO Q8HP PRN #40 capsule PRN Reason: Cetirizine HCl [All Day Allergy] 10 mg PO DAILY 30 Days #30 capsule Sulfamethoxazole/Trimethoprim [Bactrim Ds Tablet] 1 each PO BID 7 Days #14 tablet Forms: Return to Work Referrals: [facility] [Provider Group] - Follow up in 1 week
[2020-01-20 10:54] VITALS: BP 135/83
== END 2020-01-20 10:55 | disposition home or self-care (01) ==
LOC: ER 07:37
DX: J06.9 Acute upper respiratory infection, unspecified (principal); R05 Cough; R68.83 Chills (without fever); F17.200 Nicotine dependence, unspecified, uncomplicated; Z87.01 Personal history of pneumonia (recurrent)
CPT/HCPCS: 99283